=== PATIENT | female | born 1955 | race Caucasian/White ===

== ENCOUNTER → 2018-11-18 10:25 | Outpatient (CLI) | payer MEDICARE, MEDICAID, SELFPAY ==
--- NOTE | 2018-11-18 10:36 | MM_ITS ---
MM Dig screening mamm BI w/CAD CAD Screening COMPARISON: Digital mammograms with CAD 10/02/2015 and 10/03/2016 INDICATION: There is a history of breast cancer patient maternal aunt diagnosed at age 45 TECHNIQUE: Standard CC and MLO images were obtained. R2 CAD reviewed. FINDINGS: Diffuse heterogenic fibroglandular densities are seen throughout both breasts. There is a possible developing asymmetric density inner quadrant right breast at the 3:00 position highlighted by CAD. Recommend patient return for spot compression views in MLO and CC projection and ultrasound for additional evaluation. There are no suspicious microcalcifications IMPRESSION: Diffusely dense parenchymal pattern with possible developing asymmetric density right breast BI-RADS Category: 0 Need Additional Imaging Evaluation RECOMMENDED FOLLOW-UP: IMM - IMMEDIATE FOLLOW-UP RECOMMENDED (A letter has been sent to the patient regarding results of the study.)
--- NOTE | 2018-11-18 10:37 | XR_ITS ---
XR DEXA axial skeleton HISTORY: ITS.REASON: OSTEOPENIA ORDERING PHYSICIAN: Gibran Wren MD PATIENT AGE: 63 years COMPARISON: None FINDINGS: The BMD measured at the Left femoral neck is 0.901 g/cm squared with a T score of -1.0. This is considered Normal according to the World Health Organization criteria. Fracture risk is Low. L1 L4 density is normal with a T score of 1.3. IMPRESSION: Normal bone density. Low fracture risk. Suggest follow-up exam November 2020
== END ==
PROVIDERS: PCP Family Medicine; Visit Provider Family Medicine
DX: Z12.31 Encounter for screening mammogram for malignant neoplasm of breast (principal); M85.89 Other specified disorders of bone density and structure, multiple sites
CPT/HCPCS: 77067; 77080

== ENCOUNTER → 2019-03-17 13:44 | Outpatient (CLI) | payer MEDICARE, MEDICAID, SELFPAY ==
--- NOTE | 2019-03-17 13:52 | MM_ITS ---
MM Dig mamm DX unilat RT CAD Right breast ultrasound complete with axilla INDICATION: Follow-up abnormal mammogram, right breast density, asymmetric density ORDERING PHYSICIAN: Gibran Wren MD PATIENT AGE: 64 years COMPARISON: 11/18/2018 TECHNIQUE: Spot compression views and right ML view obtained along with right breast ultrasound FINDINGS: The previously noted asymmetric density in the inferior aspect of the right breast is once again noted and does not appear significantly changed. This is only well seen on the MLO view not well delineated on the cc view impression no or the ML view. This may all represent an area of asymmetric fibroglandular tissue. Previously there was a well-circumscribed oval nodule along the medial aspect of the right breast measuring 10 mm now only measuring 5 mm and may be due to a cyst. Right breast ultrasound: 5 mm cyst at 12:00, 5 mm cyst at 12:00, 3 mm cyst at 12:00, 4 mm cyst at 4:00, is contains an internal septation., Dictated 6 mm cyst at 5:00, probable 5 mm cyst at 6:00 with some low-level echoes, 6 mm cyst at 7:00 with some internal echoes. No malignant appearing mass evident.. IMPRESSION: Probably benign findings. Overall no change in the asymmetric density in the inferior aspect of the right breast. Ultrasound shows multiple cysts some of which are complex. Recommend 6 month mammographic and sonographic follow-up BI-RADS Category: 3 Probably Benign Finding Short Term Follow-up RECOMMENDED FOLLOW-UP: 6M - 6 MONTH FOLLOW-UP
== END ==
PROVIDERS: PCP Family Medicine; Visit Provider Family Medicine
DX: R92.8 Other abnormal and inconclusive findings on diagnostic imaging of breast (principal)
CPT/HCPCS: 76641; 77065

== ENCOUNTER 2021-04-04 17:11 | Emergency (ER) | payer MEDICARE, OTHER, SELFPAY ==
[2021-04-04 17:12] VITALS: BP 184/88; PULSE 88; RESP 20; TEMP 36.6; O2SAT 98; BMI 34.8
--- NOTE | 2021-04-04 17:16 | ECG_ITS ---
APPROVED REPORT Exam: Resting ECG HR:91 bpm ECG Measurements Heart Rate 91 AXES MO 142 P 55 QRSd 76 QRS -9 QT 376 T 24 QTc 462 Conclusion Normal sinus rhythm Normal ECG Electronically signed by : Cliff Bearden MD 04/05/2021 18:54:50
--- NOTE | 2021-04-04 17:21 | XR_ITS ---
PROCEDURE INFORMATION: Exam: XR Chest Exam date and time: 04/04/2021 5:21 PM Age: 66 years old Clinical indication: Chest wall pain; Additional info: Chest pain TECHNIQUE: Imaging protocol: XR of the chest. Views: 1 view. COMPARISON: CR CXR CHEST(2 VIEWS-NOT PORTABLE) 03/07/2017 2:32 PM FINDINGS: Lungs: Unremarkable. No consolidation. Pleural spaces: Unremarkable. No pleural effusion. No pneumothorax. Heart/Mediastinum: Unremarkable. No cardiomegaly. Bones/joints: Unremarkable. IMPRESSION: No acute findings.
[2021-04-04 17:48] LABS: Basophils % 0.4 % (0.1-2.0); Eosinophils # 0.2 K/mm3 (0.0-0.4); Eosinophils % 1.5 % (0.1-12.0); Hematocrit 38.8 % (37.0-47.0); Hemoglobin 12.7 g/dL (12.2-16.2); Lymphocytes # 2.4 K/mm3 (0.7-4.5); Lymphocytes % 22.4 % (10-50); Mean Corpuscular HGB Conc 32.7 g/dL (31.8-35.4); Mean Corpuscular Hemoglobin 29.4 pg (27.0-31.2); Mean Platelet Volume 7.5 fl (7.4-10.4); Monocytes # 0.5 K/mm3 (0.1-1.0); Monocytes % 4.6 % (1.7-9.3); Neutrophils # 7.6 K/mm3 (1.8-7.8); Neutrophils % 71.2 % (37.0-80.0); Platelet Count 355 K/mm3 (142-424); Red Blood Count 4.31 M/mm3 (4.20-5.40); Red Cell Distribution Width 14.2 % (11.5-17.5); White Blood Count 10.7 K/mm3 (4.8-10.8)
[2021-04-04 17:48] LABS: Chloride 106 mmol/L (98-107); Potassium 3.5 mmoL/L (3.5-5.1); Sodium 141 mmol/L (136-145)
[2021-04-04 17:51] LABS: Alanine Aminotransferase 20 U/L (12-78); Albumin Level 3.7 g/dl (3.5-5.0); Albumin/Globulin Ratio 1.3 (1.1-1.8); Alkaline Phosphatase 74 U/L (38-126); Anion Gap 11.5 mEq/L (5-15); Aspartate Amino Transferase 27 U/L (14-36); Bilirubin,Total 0.3 mg/dl (0.2-1.3); Blood Urea Nitrogen 18 mg/dl (7-17); Calcium 8.2 mg/dl (8.4-10.2); Carbon Dioxide 27 mmol/L (22.0-30.0); Creatinine Clearance Estimated 100 mL/min (50-200); Estimated Glomerular Filt Rate 56 ml/min (>60); GFR (African American) 67 ML/MIN (>60); Globulin 2.9 g/dL (1.3-3.2); Glucose 119 mg/dl (74-100); Total Protein,Serum 6.6 g/dl (6.3-8.2)
--- NOTE | 2021-04-04 18:14 | [facility].EDGENADL ---
ED Disposition Clinical Impression: Shortness of breath Heat exhaustion Qualifiers: Encounter type: initial encounter Qualified Code(s): T67.5XXA - Heat exhaustion, unspecified, initial encounter Disposition: Home, Self-Care Condition on Discharge: Good Referrals: Gibran Wren MD [Primary Care Provider] - 3 days Time of Disposition: 18:17 - Critical Care Critical Care Time: No Attestation: On 04/04/21, the high probability of a clinically significant, sudden or life threatening deterioration of the following system(s) required my full and direct attention, intervention and personal management. The time I documented below is in addition to time spent performing reported procedures but includes the following listed in this critical care notation. Medical Decision Making - Medical Records Medical records reviewed: Yes: I reviewed the patient's medical records. - Gavin Inquiry Pt receiving controlled substance: No Vital Signs: 04/04/21 17:12 Temperature 98 F Temperature Source Oral Pulse Rate [Radial] 88 Respiratory Rate 20 Blood Pressure [Right Arm] 184/88 H Blood Pressure Mean [Right Arm] 120 Blood Pressure Position [Right Arm] Sitting 02 Sat by Pulse Oximetry 98 Oxygen Delivery Method Room Air - Lab Data Lab results reviewed: Yes: I reviewed the patient's lab results. Lab Results 04/04/21 17:08: WBC Cancelled, Corrected WBC Cancelled, RBC Cancelled, Hgb Cancelled, Hct Cancelled, MCV Cancelled, MCH Cancelled, MCHC Cancelled, RDW Cancelled, Plt Count Cancelled, MPV Cancelled, Neut % (Auto) Cancelled, Lymph % (Auto) Cancelled, Hardy % (Auto) Cancelled, Eos % (Auto) Cancelled, Baso % (Auto) Cancelled, Neut # (Auto) Cancelled, Lymph # (Auto) Cancelled, Hardy # (Auto) Cancelled, Eos # (Auto) Cancelled, Baso # (Auto) Cancelled 04/04/21 17:08: Sodium 141, Potassium 3.5, Chloride 106, Carbon Dioxide 27, Anion Gap 11.5, BUN 18 H, Creatinine 1.00, Estimated Creat Clear 100, Estimated GFR 56 L, Est GFR ( Amer) 67, Glucose 119 H, Calcium 8.2 L, Total Bilirubin 0.3, AST 27, ALT 20, Alkaline Phosphatase 74, Total Protein 6.6, Albumin 3.7, Globulin 2.9, Albumin/Globulin Ratio 1.3 04/04/21 17:27: WBC 10.7, RBC 4.31, Hgb 12.7, Hct 38.8, MCV 90.0, MCH 29.4, MCHC 32.7, RDW 14.2, Plt Count 355, MPV 7.5, Neut % (Auto) 71.2, Lymph % (Auto) 22.4, Hardy % (Auto) 4.6, Eos % (Auto) 1.5, Baso % (Auto) 0.4, Neut # (Auto) 7.6, Lymph # (Auto) 2.4, Hardy # (Auto) 0.5, Eos # (Auto) 0.2, Baso # (Auto) 0.0 Result diagrams: 04/04/21 17:27 04/04/21 17:08 Orders (Tests/Meds): ED MEDICATIONS Generic Name Dose Route Start Last Admin Trade Name Freq PRN Reason Stop Dose Admin Lactated Ringer's 1,000 mls @ 999 mls/hr 04/04/21 17:15 04/04/21 17:40 Lactated Ringer's 1000 Ml Bag IV 04/04/21 18:15 999 mls/hr .Q1H1M ERROL Administration ORDERS Category Date Time Status Troponin I Q3H Lab 04/04/21 20:30 Ordered Troponin I Q3H Lab 04/04/21 23:30 Ordered Troponin I Stat Lab 04/04/21 17:42 Received - Radiology Data #1 Image(s): Chest Image Reviewed: Yes I reviewed the patient's radiology results Preliminary Findings: Normal/NAD - ECG Data Tracing #1 I reviewed this ECG and interpreted as documented below: 91 bpm, normal sinus rhythm, no ST elevation or depression, no ectopy, normal intervals. ECG initial impression date: 04/04/21 ECG initial impression time: 17:30 Medical Decision Narrative: 66yo F evaluated for shortness of breath and possible heat exhaustion. Patient in no acute distress on initial evaluation. She is afebrile upon arrival to the emergency department. Her O2 sat is 99% on room air. Routine laboratory studies and EKG, chest x-ray ordered. EKG reviewed as above. Chest x-ray is normal. Laboratory studies are unremarkable. Patient is been rehydrated with 1 L of IV fluids. She is appropriate stable for discharge home at this time. General Adult HPI - General Chief
[2021-04-04 18:31] LABS: Troponin I < 0.01 ng/ml (0.00-0.034)
[2021-04-04 19:10] VITALS: BP 176/89; PULSE 79; RESP 22; TEMP 36.6; O2SAT 99
== END 2021-04-04 19:11 | disposition home or self-care (01) ==
PROVIDERS: Emergency Provider Family Medicine; PCP Family Medicine
DX: T67.5XXA Heat exhaustion, unspecified, initial encounter (principal)
CPT/HCPCS: 71045; 80053; 84484; 85025; 93005; 96365; 99282